=== PATIENT | male | born 1995 | race Hispanic/Latino ===

== ENCOUNTER 2018-09-05 07:28 | Emergency (ER) | payer OTHER ==
[2018-09-05] MEDS ORDERED: ACULAR LS0.4 % OD (07:50)
[2018-09-05] MEDS ORDERED: ERYTHROMYCIN O3.5 GM OD (07:50)
[2018-09-05 07:58] VITALS: BP 130/68
== END 2018-09-05 08:08 | disposition home or self-care (01) | DRG 125 ==
LOC: ED 07:28
DX: H10.9 Unspecified conjunctivitis (principal)